=== PATIENT | male | born 1960 | race Two or more races ===

== ENCOUNTER 2022-01-07 18:09 | Emergency (ER) | payer OTHER ==
[~2022-01-07] VITALS: Ht 175.3 cm; Wt 88.0 kg
--- NOTE | 2022-01-07 18:34 | NUR ---
To ER bed 3, [id number] frm [facility] rehab c/o chest pain since last night. asp 325 given precinct captain, [id number], breathing even and non labored, connected to monitor, awaiting md orders
--- NOTE | 2022-01-07 18:36 | NUR ---
DR FUNES AT BEDSIDE
--- NOTE | 2022-01-07 18:41 | NUR ---
dr pandya at bedside for eval.
--- NOTE | 2022-01-07 18:49 | NUR ---
Darwin glass at bedside for blood draw.
[2022-01-07 19:33] LABS: CARBON DIOXIDE 28 mmol/L (21-32); CHLORIDE 99 mmol/L (98-107); CREATININE 0.8 mg/dL (0.6-1.3); GLUCOSE 93 mg/dL (74-106); POTASSIUM 3.7 mmol/L (3.5-5.1); SODIUM SERUM 135 mmol/L (136-145); UREA NITROGEN, BLOOD 15 mg/dL (7-18)
--- NOTE | 2022-01-07 19:37 | NUR ---
REPORT RECEIVED FROM VESNA CHRISTINE. PATIENT IS 61YO MALE CAME FROM [facility] WITH COMPLAINTS OF CP. RECIEVED PT WITH IV CANNULA G20 ON RIGHT HAND. ATTACHED TO MONITOR AND WITH SITTER. SPOKE TO SITTER, PT IS [facility] BUT SHE DOESN'T KNOW THE REASON WHY. VITALS CHECKED. -SOB, -CP AT THE MOMENT.
[2022-01-07 20:24] LABS: BASOPHILS % (AUTO) 0.7 % (0.0-2.0); EOSINOPHILS % (AUTO) 2.5 % (0.0-6.0); HEMATOCRIT 44 % (39-51); HEMOGLOBIN 14.7 g/dL (13.5-17.5); LYMPHOCYTES # (AUTO) 1.4 K/uL (0.8-4.8); LYMPHOCYTES % (AUTO) 23.5 % (20.0-44.0); MEAN CORPUSCULAR HGB CONC 33 g/dl (31.0-36.0); MEAN CORPUSCULAR VOLUME 84 fL (80-96); MONOCYTES # (AUTO) 0.7 K/uL (0.1-1.30); MONOCYTES % (AUTO) 11.9 % (2.0-12.0); NEUTROPHILS # (AUTO) 3.6 K/uL (1.8-8.9); NEUTROPHILS % (AUTO) 61.4 % (43.0-81.0); PLATELET COUNT (AUTO) 152 K/uL (150-450); RED BLOOD CELL COUNT(AUTO) 5.27 MIL/uL (4.5-6.0); WHITE BLOOD COUNT (AUTO) 5.9 K/uL (4.3-11.0)
--- NOTE | 2022-01-07 21:10 | NUR ---
BLOOD DRAWN FOR 2ND TROPONIN
[2022-01-07] MEDS ORDERED: ASPIRIN 81 MG TAB.CHEW ONE (22:08)
--- NOTE | 2022-01-07 22:23 | NUR ---
COVID SWAB DONE AND SENT TO LAB
[2022-01-07] MEDS ORDERED: ASPIRIN 81 MG TAB.CHEW PO ONE (22:30)
--- NOTE | 2022-01-07 23:05 | NUR ---
SPOKE TO MOHINI PELAYO. WAS GIVEN DR MACHADO # FOR PEER TO PEER
--- NOTE | 2022-01-07 23:21 | NUR ---
SPOKE TO THE [facility] HELPER BROCK. GAVE HIM UPDATE ABOUT PT.
--- NOTE | 2022-01-08 01:07 | NUR ---
called to follow up on transfer info. case kyle will call back for room info
--- NOTE | 2022-01-08 01:17 | NUR ---
[facility] WILL TRANSPORT THE PT TO [facility] AT 0630. NO OTHER AUTHORIZED AMBULANCE COMPANIES ARE AVAILABLE FOR TRANSPORT TONIGHT.
--- NOTE | 2022-01-08 01:18 | NUR ---
Pt is going [facility] under the care of Dr. Grande. Tele room 520. call [phone] for report
--- NOTE | 2022-01-08 03:48 | NUR ---
REPORT GIVEN TO VESNA GEE OF [facility] ROOM 520
--- NOTE | 2022-01-08 06:27 | NUR ---
REPORT GIVEN TO SARATH NASSAR OF [facility] UNIT 44.
[2022-01-08 07:28] VITALS: BP 112/70
== END 2022-01-08 07:00 | disposition short-term general hospital (02) ==
LOC: ER 18:18
DX: R07.9 Chest pain, unspecified (principal); R94.31 Abnormal electrocardiogram [ECG] [EKG]; I25.2 Old myocardial infarction; Z20.822 Contact with and (suspected) exposure to COVID-19; I10 Essential (primary) hypertension; Z91.011 Allergy to milk products; E11.9 Type 2 diabetes mellitus without complications; F20.9 Schizophrenia, unspecified
CPT/HCPCS: 99285; 71045; 87426; 93005; 85025; 80048; 36415; 84484 ×2; 83880; C9803